=== PATIENT | female | born 1950 | race Caucasian/White ===

== ENCOUNTER 2017-08-27 18:12 | Emergency (ER) | payer MEDICARE ==
[2017-08-27] MEDS ORDERED: SODIUM CHLORIDE 0.9% 500 ML IV STA (19:12)
[2017-08-27] MEDS ORDERED: DICYCLOMINE 10 MG/ML 2 ML AMP IM STA (19:12)
--- NOTE | 2017-08-27 19:16 | ED ---
Abdominal Pain HPI - General Chief Complaint: Abdominal Pain Stated Complaint: ABDOMINAL PAIN Time Seen by Provider: 08/27/17 19:03 Source: patient Mode of arrival: ambulatory Limitations: no limitations - History of Present Illness Initial Comments: 67-year-old female patient presented to the emergency department today for evaluation of generalized abdominal pain. Patient states that she has had the pain for the last 3 hours. States that started that it was constant however has now become intermittent. She states that the pain is real sharp in nature. She states that she also has frequency of urination that started over the last hour. She denies any nausea or vomiting. She denies any constipation. States that she does have issues with diarrhea. She denies any hematochezia or melena. She denies any fevers or chills. Patient does have a history of breast cancer and does receive radiation, last radiation treatment was 2 weeks ago. Patient denies any recent rash, shortness breath, chest pain, back pain, numbness, tingling, dizziness, weakness, hematuria, dysuria, headache, visual changes, or any other complaints. - Related Data Home Medications Medication Instructions Recorded Confirmed Anastrozole [Arimidex] 1 mg PO HS 08/27/17 08/27/17 Allergies Allergy/AdvReac Type Severity Reaction Status Date / Time metronidazole [From Flagyl] Allergy Unknown Verified 08/27/17 19:16 Review of Systems ROS Statement: Those systems with pertinent positive or pertinent negative responses have been documented in the HPI. ROS Other: All systems not noted in ROS Statement are negative. Past Medical History Past Medical History: Cancer Additional Past Medical History / Comment(s): radiation , breast cancer History of Any Multi-Drug Resistant Organisms: None Reported Past Surgical History: Tonsillectomy Additional Past Surgical History / Comment(s): right breast Past Psychological History: No Psychological Hx Reported Smoking Status: Former smoker Past Alcohol Use History: None Reported Past Drug Use History: None Reported General Exam Limitations: no limitations General appearance: alert, in no apparent distress, other (This is a well- developed, well-nourished elderly female patient in no acute distress. Vital signs upon presentation are temperature 98.7F, pulse 73, respirations 20, blood pressure 186/79, pulse ox 100% on room air.) Eye exam: Present: normal appearance, PERRL, EOMI. Absent: scleral icterus, conjunctival injection, periorbital swelling ENT exam: Present: normal exam, normal oropharynx, mucous membranes moist, TM's normal bilaterally Respiratory exam: Present: normal lung sounds bilaterally. Absent: respiratory distress, wheezes, rales, rhonchi, stridor Cardiovascular Exam: Present: regular rate, normal rhythm, normal heart sounds. Absent: systolic murmur, diastolic murmur, rubs, gallop, clicks GI/Abdominal exam: Present: soft, tenderness (Generalized), normal bowel sounds. Absent: distended, guarding, rebound, rigid Neurological exam: Present: alert, oriented X3, CN II-XII intact Psychiatric exam: Present: normal affect, normal mood Skin exam: Present: warm, dry, intact, normal color. Absent: rash Course Vital Signs 08/27/17 08/27/17 08/27/17 18:17 19:20 21:21 Temperature 98.7 F 99.2 F 97.5 F L Pulse Rate 73 70 80 Respiratory 20 18 18 Rate Blood Pressure 186/79 158/72 189/83 O2 Sat by Pulse 100 98 98 Oximetry Medical Decision Making - Medical Decision Making 67-year-old female patient presented to the emergency department today for evaluation of generalized abdominal pain. Physical examination was relatively unremarkable. There was mild generalized abdominal tenderness. Patient is afebrile. Labs reviewed and were unremarkable. Urinalysis is negative for any acute process. KUB x-ray of the abdomen did show excessive pancolonic stool. CT of the abdomen and pelvis was obtained and showed no acute process. I did discuss findings with the patient. I discussed that her symptoms could be related to constipation, but that we could not completely rule out an early process. We will give her magnesium citrate to try. She is instructed to follow up with her doctor soon as possible for further evaluation. She is instructed to return here immediately for symptoms continue, she has any new, worsening, or concerning symptoms. She verbalizes understanding and agrees with this plan. - Lab Data Result diagrams: 08/27/17 19:15 08/27/17 19:15 Lab Results 08/27/17 08/27/17 08/27/17 Range/Units 19:15 19:15 20:20 WBC 7.4 (3.8-10.6) k/uL RBC 4.54 (3.80-5.40) m/uL Hgb 13.4 (11.4-16.0) gm/dL Hct 41.5 (34.0-46.0) % MCV 91.4 (80.0-100.0) fL MCH 29.5 (25.0-35.0) pg MCHC 32.3 (31.0-37.0) g/dL RDW 13.3 (11.5-15.5) % Plt Count 354 (150-450) k/uL Neutrophils % 58 % Lymphocytes % 29 % Monocytes % 7 % Eosinophils % 4 % Basophils % 1 % Neutrophils # 4.3 (1.3-7.7) k/uL Lymphocytes # 2.2 (1.0-4.8) k/uL Monocytes # 0.5 (0-1.0) k/uL Eosinophils # 0.3 (0-0.7) k/uL Basophils # 0.1 (0-0.2) k/uL Sodium 144 (137-145) mmol/L Potassium 4.1 (3.5-5.1) mmol/L Chloride 108 H (98-107) mmol/L Carbon Dioxide 24 (22-30) mmol/L Anion Gap 12 mmol/L BUN 19 H (7-17) mg/dL Creatinine 0.70 (0.52-1.04) mg/dL Est GFR (MDRD) Af Amer >60 (>60 ml/min/1.73 sqM) Est GFR (MDRD) Non-Af >60 (>60 ml/min/1.73 sqM) Glucose 113 H (74-99) mg/dL Calcium 10.0 (8.4-10.2) mg/dL Total Bilirubin 0.3 (0.2-1.3) mg/dL AST 21 (14-36) U/L ALT 24 (9-52) U/L Alkaline Phosphatase 113 (38-126) U/L Total Protein 6.5 (6.3-8.2) g/dL Albumin 4.0 (3.5-5.0) g/dL Amylase 54 (30-110) U/L Lipase 179 (23-300) U/L Urine Color Yellow Urine Appearance Clear (Clear) Urine pH 7.5 (5.0-8.0) Ur Specific [place] 1.013 (1.001-1.035) Urine Protein Negative (Negative) Urine Glucose (UA) Negative (Negative) Urine Ketones Negative (Negative) Urine Blood Negative (Negative) Urine Nitrite Negative (Negative) Urine Bilirubin Negative (Negative) Urine Urobilinogen <2.0 (<2.0) mg/dL Ur Leukocyte Esterase Negative (Negative) - Radiology Data Radiology results: report reviewed, image reviewed CT of the abdomen and pelvis with contrast was obtained, report was reviewed in its entirety, impression by Dr. Yuniel Sumner shows no acute process. Non- aneurysmal atherosclerotic changes throughout the arterial anatomy. KUB x-ray of the abdomen was unchanged findings show excessive swain colonic stool. The bowel gas pattern is otherwise unremarkable. No pneumatosis. No pneumoperitoneum. Soft tissues the skeletal structures are unremarkable. The visualized lung bases and pro spaces and cardiac silhouette are unremarkable. Right axillary surgical clips noted. Impression by Dr. Yuniel Sumner shows excessive pancolonic stool. Disposition Clinical Impression: Abdominal pain Disposition: HOME SELF-CARE Condition: Good Instructions: Abdominal Pain (ED) Additional Instructions: Use medications as discussed. Follow up with her primary care physician as soon as possible for reevaluation. Return here immediate for any new, worsening , or concerning symptoms. Referrals: Bruno Barnett DO [Primary Care Provider] - 1-2 days Time of Disposition: 21:43
[2017-08-27 19:26] VITALS: RESP 18
[2017-08-27 19:34] LABS: Basophils # (A) 0.1 k/uL (0-0.2); Basophils % (A) 1 %; Eosinophils # (A) 0.3 k/uL (0-0.7); Eosinophils % (A) 4 %; HCT 41.5 % (34.0-46.0); HGB 13.4 gm/dL (11.4-16.0); Lymphocytes # (A) 2.2 k/uL (1.0-4.8); Lymphocytes % (A) 29 %; MCH 29.5 pg (25.0-35.0); MCHC 32.3 g/dL (31.0-37.0); MCV 91.4 fL (80.0-100.0); Mean Platelet Volume 6.5; Monocytes # (A) 0.5 k/uL (0-1.0); Monocytes % (A) 7 %; Neutrophils # (A) 4.3 k/uL (1.3-7.7); Neutrophils % (A) 58 %; Platelet Count 354 k/uL (150-450); RBC 4.54 m/uL (3.80-5.40); RDW 13.3 % (11.5-15.5); WBC 7.4 k/uL (3.8-10.6)
[2017-08-27 19:48] LABS: ALT 24 U/L (9-52); AST 21 U/L (14-36); Alkaline Phosphatase 113 U/L (38-126); Amylase 54 U/L (30-110); Anion Gap 12 mmol/L; Blood Urea Nitrogen 19 mg/dL (7-17); Carbon Dioxide 24 mmol/L (22-30); Chloride 108 mmol/L (98-107); Glucose 113 mg/dL (74-99); Lipase 179 U/L (23-300); Potassium 4.1 mmol/L (3.5-5.1); Sodium 144 mmol/L (137-145); Total Bilirubin 0.3 mg/dL (0.2-1.3); Total Protein 6.5 g/dL (6.3-8.2)
--- NOTE | 2017-08-27 19:57 | XR ---
EXAMINATION TYPE: XR KUB-2V DATE OF EXAM: 08/27/2017 COMPARISON: NONE HISTORY: Lower abdominal pain, history right breast carcinoma TECHNIQUE: 2 upright views to include the abdomen and pelvis. FINDINGS: There is excessive pancolonic stool. The bowel gas pattern is otherwise unremarkable. No pn eumatosis. No pneumoperitoneum. The soft tissues and skeletal structures are unremarkable. The visualized lung bases and pleural spaces and cardiac silhouette are unremarkable. Right axillary surgical clips noted. IMPRESSION: Excessive pancolonic stool.
[2017-08-27 20:26] LABS: Appearance,Urine Clear (Clear); Bilirubin,Urine Negative (Negative); Blood,Urine Negative (Negative); Color,Urine Yellow; Glucose,Urine (UA) Negative (Negative); Ketones,Urine Negative (Negative); Leukocyte Esterase,Urine Negative (Negative); Nitrite,Urine Negative (Negative); PH, Urine 7.5 (5.0-8.0); Protein,Urine Negative (Negative); Specific Gravity,Urine 1.013 (1.001-1.035); Urobilinogen,Urine <2.0 mg/dL (<2.0)
[2017-08-27] MEDS ORDERED: RX INFO: IV CONTRAST WAS GIVEN 1 EACH MISC MISCELLANE PRN (20:36)
[2017-08-27 21:22] VITALS: BP 189/83; PULSE 80; TEMP 97.5
--- NOTE | 2017-08-27 21:24 | CT ---
EXAMINATION TYPE: CT abdomen pelvis w con DATE OF EXAM: 08/27/2017 COMPARISON: NONE HISTORY: Abdominal pain today. CT DLP: 961.8 mGycm Automated exposure control for dose reduction was used. TECHNIQUE: Helical acquisition of images was performed from the lung bases through the pelvis. CONTRAST: Performed without Oral Contrast and with IV Contrast, patient injected with 100 mL of Omnip aque 300. FINDINGS: LUNG BASES: No significant abnormality is appreciated. LIVER/GB: No significant abnormality is appreciated. PANCREAS: No significant abnormality is seen. SPLEEN: No significant abnormality is seen. ADRENALS: No significant abnormality is seen. KIDNEYS: No significant abnormality is seen. FREE AIR: No free air is visualized. RETROPERITONEAL ADENOPATHY: None visualized REPRODUCTIVE ORGANS: No significant abnormality is seen URINARY BLADDER: No significant abnormality is seen. PELVIC ADENOPATHY: None visualized. OSSEOUS STRUCTURES: No significant abnormality is seen. BOWEL: No significant abnormality is seen. VASCULATURE: There are advanced nonaneurysmal atherosclerotic changes seen throughout the visualized arterial anatomy of the abdomen and pelvis. The venous structures of the abdomen and pelvis are widel y patent. IMPRESSION: 1. NO ACUTE PROCESS. 2. NONANEURYSMAL ATHEROSCLEROTIC CHANGES THROUGHOUT THE ARTERIAL ANATOMY.
[2017-08-27] MEDS ORDERED: MAGNESIUM CITRATE 296 ML BOTTLE PO ONE (21:42)
== END 2017-08-27 22:04 | disposition home or self-care (01) ==
LOC: EC 18:12
DX: R10.84 Generalized abdominal pain (principal); R35.0 Frequency of micturition; R19.7 Diarrhea, unspecified; Z85.3 Personal history of malignant neoplasm of breast; Z87.891 Personal history of nicotine dependence; Z79.899 Other long term (current) drug therapy; Z88.1 Allergy status to other antibiotic agents
CPT/HCPCS: 36415; 80053; 82150; 83690; 85025; 81003; 74018; 74177; 99284; 96372; J0500; Q9967

== ENCOUNTER → 2018-02-01 | Outpatient (CLI) | payer MEDICARE ==
[2018-02-01 14:01] LABS: T4, Free (Free Thyroxine) 0.89 ng/dL (0.78-2.19)
== END | disposition home or self-care (01) ==
LOC: LABWHC1 12:42
PROVIDERS: ATTEND Psychiatry & Neurology Neurology
DX: R41.3 Other amnesia (principal)
CPT/HCPCS: 36415; 82607; 84439; 84443

== ENCOUNTER → 2018-02-19 | Outpatient (CLI) | payer MEDICARE ==
--- NOTE | 2018-02-19 14:00 | MR ---
EXAMINATION TYPE: MR brain wo/w con DATE OF EXAM: 02/19/2018 COMPARISON: 09/20/2009 HISTORY: Memory loss TECHNIQUE: Multiplanar, multisequence images of the brain and brainstem is performed without and with IV contras t, utilizing 7.5 mL intravenous Gadavist . FINDINGS: Diffusion weighted images demonstrate no evidence of a recent infarct or other diffusion ab normality. There is no extra-axial fluid collection. Few punctate foci of periventricular and subcor tical white matter change are seen as FLAIR/T2 hyperintense foci and are mild in degree. No infratent orial lesions are seen. The ventricular system and cisternal spaces are symmetrically prominent bakari tible with age-related volume loss, mild in degree. Midline structures demonstrate normal morphology. There is slight asymmetric prominence of the left lateral aspect of the pituitary gland in comparison to the right on coronal postcontrast image 14 and sagittal image 70. No enlargement of the pituitary gland is seen above the sella turcica. No impress ion on the optic chiasm. There is a nonenhancing incidentally noted 7 mm pineal gland cyst abutting b ut not significantly pressing upon the superior tectal plate. The craniocervical junction appears within normal limits. Post contrast images demonstrate no abnorm al enhancement. The dural venous sinuses appear patent. The globes are intact. There is partial opaci fication of the right and left mastoid air cells. Scant mucosal thickening is seen within the frontal and ethmoid sinuses. Remaining visualized paranasal sinuses are well aerated. IMPRESSION: 1. No evidence of acute infarct or abnormal intracranial enhancement. 2. Mild paranasal sinus disease and partial opacification of the bilateral mastoid air cells that jw uld be correlated clinically with point tenderness to exclude mastoiditis. 3. Slight asymmetric prominence of the left lateral aspect of the pituitary gland. If laboratory valu es or abnormal and microadenoma suspected dedicated pituitary MRI could be performed. No impression o n the optic chiasm. 4. Mild nonspecific white matter change, likely on the basis of chronic microangiopathy. Global mild age-related volume loss.
== END | disposition home or self-care (01) ==
LOC: RADMRIMAIN 11:14
PROVIDERS: ATTEND Psychiatry & Neurology Neurology
DX: E23.6 Other disorders of pituitary gland (principal); R90.82 White matter disease, unspecified; Z13.89 Encounter for screening for other disorder
CPT/HCPCS: 82565; 70553; 36415; A9581

== ENCOUNTER → 2018-03-15 | Outpatient (CLI) | payer MEDICARE ==
--- NOTE | 2018-03-16 07:33 | MM ---
Reason for exam: additional evaluation requested from prior study. Last mammogram was performed 1 year ago. History: Patient is postmenopausal and has history of breast cancer at age 66. Lumpectomy of the right breast, 2017. Radiation therapy of the right breast, 2017. Benign cyst aspiration of the left breast. Took estrogen for 23 years 4 months. Physical Findings: Nurse did not find any significant physical abnormalities on exam. MG 3D Diag Mammo W/Cad CONRAD Bilateral CC and MLO view(s) were taken. Prior study comparison: March 04, 2017, mammogram, performed at [facility]. April 25, 2009, bilateral digital screening mammogram. November 18, 2007, bilateral digital screening mammogram. The breast tissue is heterogeneously dense. This may lower the sensitivity of mammography. Stable benign calcifications. Stable post operative distortion right breast. No significant new findings when compared with previous films. These results were verbally communicated with the patient and result sheet given to the patient on 03/15/18. ASSESSMENT: Benign, BI-RAD 2 RECOMMENDATION: Follow-up diagnostic mammogram of both breasts in 1 year.
== END | disposition home or self-care (01) ==
LOC: RADMAMWWP 09:49
PROVIDERS: ATTEND Radiology Radiation Oncology
DX: Z08 Encounter for follow-up examination after completed treatment for malignant neoplasm (principal); Z85.3 Personal history of malignant neoplasm of breast
CPT/HCPCS: 77066; G0279; 77062

== ENCOUNTER → 2018-03-19 | Outpatient (CLI) | payer MEDICARE ==
--- NOTE | 2018-03-19 19:33 | MR ---
EXAMINATION TYPE: MR pituitary wo/w con DATE OF EXAM: 03/19/2018 COMPARISON: MRI brain 02/19/2018 HISTORY: Abn MRI /Pituitary microadenoma TECHNIQUE: Multiplanar, multisequence images of the pituitary is performed without and with IV contrast, utilizi ng 7.5 mL intravenous Gadavist . FINDINGS: Pituitary stalk is in the midline. Optic chiasm is normal. There is fullness through the posterior portion of the pituitary. This is somewhat hyperintense witho ut enhancement. This is hyperintense on T1-weighted sequences and more intermediate signal on postcon trast T1-weighted images. This is intermediate signal on T2-weighted sequences. The pituitary as a whole has a normal size. The slight prominence of the superior left portion of the pituitary is again evident. This portion of the pituitary is subtly more hypointense than the right aspect. Postcontrast T1-weighted images in the sagittal plane have a 0.5 cm hypointense area. This is identified in the sagittal plane but not as clearly evident in the coronal planes this is slightly m ore hypointense on the T2-weighted sequences. Microadenoma at this location may be present. Normal vascular flow voids are present within the visualized intracranial cerebral vasculature. Pitui tary stalk is midline and the optic chiasm is normal. No compression or displacement of the optic chi asm is evident. There may be some mild age-related atrophy of the brain within the visualized portion s. No suspicious enhancement within the brain is evident. IMPRESSION: 1. There is some subtle fullness as well as some subtle hypointensity on T1-weighted sequences within the left aspect of the pituitary suggesting underlying 0.5 cm microadenoma may be present. Clinical correlation is recommended. 2. Some additional fullness slightly greater than expected is within the posterior portion of the pit uitary of uncertain clinical significance.
== END ==
LOC: RADMRIMAIN 11:13
PROVIDERS: ATTEND Psychiatry & Neurology Neurology
DX: R90.89 Other abnormal findings on diagnostic imaging of central nervous system (principal)
CPT/HCPCS: 70553; A9581

== ENCOUNTER → 2018-07-16 | Outpatient (CLI) | payer MEDICARE ==
[2018-07-19 12:28] LABS: ACTH 12.5 pg/mL (0.00-45.99)
== END | disposition home or self-care (01) ==
LOC: LABWHC1 11:53
PROVIDERS: ATTEND Internal Medicine Endocrinology, Diabetes & Metabolism
DX: D35.2 Benign neoplasm of pituitary gland (principal)
CPT/HCPCS: 36415; 82024; 82533; 82607; 83001; 83002; 84146; 84305; 84439; 84443

== ENCOUNTER → 2019-05-05 | Outpatient (CLI) | payer MEDICARE ==
--- NOTE | 2019-05-06 08:35 | MM ---
Reason for exam: additional evaluation requested from prior study. Last mammogram was performed 1 year and 2 months ago. History: Patient is postmenopausal and has history of breast cancer at age 66. Lumpectomy of the right breast, 2017. Radiation therapy of the right breast, 2017. Benign cyst aspiration of the left breast. Took estrogen for 23 years 4 months. Physical Findings: Nurse did not find any significant physical abnormalities on exam. MG 3D Diag Mammo W/Cad CONRAD Bilateral CC and MLO view(s) were taken. XCCL view(s) were taken of the right breast. Prior study comparison: March 15, 2018, bilateral MG 3d diag mammo w/cad CONRAD. March 04, 2017, mammogram, performed at [facility]. The breast tissue is heterogeneously dense. This may lower the sensitivity of mammography. Post surgical and post therapy changes right breast. Nodular densities and medial asymmetric density on the left as well as centrally on the CC view are unchanged. These results were verbally communicated with the patient and result sheet given to the patient on 05/05/19. ASSESSMENT: Probably benign, BI-RAD 3 RECOMMENDATION: Follow-up diagnostic mammogram of both breasts in 1 year.
== END | disposition home or self-care (01) ==
LOC: RADMAMWWP 06:56
PROVIDERS: ATTEND Internal Medicine Hematology & Oncology
DX: C50.511 Malignant neoplasm of lower-outer quadrant of right female breast (principal)
CPT/HCPCS: 77066; G0279; 77062

== ENCOUNTER → 2019-08-04 | Outpatient (CLI) | payer MEDICARE ==
--- NOTE | 2019-08-04 15:30 | CT ---
EXAMINATION TYPE: CT abdomen w con DATE OF EXAM: 08/04/2019 HISTORY: Stomach pains CT DLP: 935mGycm Automated Exposure Control for Dose Reduction was Utilized. CONTRAST: CT scan of the abdomen is performed with oral and with IV Contrast, patient injected with 100 mL of I sovue 300. COMPARISON: CT abdomen and pelvis August 27, 2017 FINDINGS: LUNG BASES: Motion artifact and rotation with lateral left basilar linear scarring and/or atelectasis . LIVER/GB: Dependent 1.3 cm rim hyperdense lesion gallbladder suspected gallstone. No surrounding infl ammatory change. PANCREAS: No significant abnormality is seen. SPLEEN: No significant abnormality is seen. ADRENALS: No significant abnormality is seen. KIDNEYS: Symmetric cortical medullary uptake and excretion of both kidneys without hydronephrosis see n bilaterally. BOWEL: Oral contrast is present in right sided ileal loops making evaluation slightly suboptimal.. No suspicious small large bowel dilatation noted. LYMPH NODES: No greater than 1cm abdominal or pelvic lymph nodes are appreciated. OSSEOUS STRUCTURES: [id number] multilevel disc space narrowing in the lumbar spine with vacuum disc phenomenon L5-S1 level. Mild multilevel anterior and lateral spurring. OTHER: Moderate to advanced calcified plaque distal abdominal aorta extends into the iliac branch ves sels. IMPRESSION: No bowel obstruction. No suspicious new or acute findings are evident.
== END | disposition home or self-care (01) ==
LOC: RADCTMAIN 12:58
PROVIDERS: ATTEND Family Medicine
DX: Z01.818 Encounter for other preprocedural examination (principal); R10.84 Generalized abdominal pain
CPT/HCPCS: 82565; 84520; 74160; 36415; Q9967

== ENCOUNTER → 2020-08-07 | Outpatient (CLI) | payer MEDICARE ==
--- NOTE | 2020-08-07 08:46 | MM ---
Reason for exam: additional evaluation requested from prior study. Last mammogram was performed 1 year and 3 months ago. History: Patient is postmenopausal and has history of breast cancer at age 66. Lumpectomy of the right breast, 2017. Radiation therapy of the right breast, 2017. Benign cyst aspiration of the left breast. Took estrogen for 23 years 4 months. Physical Findings: Nurse did not find any significant physical abnormalities on exam. MG 3D Diag Mammo W/Cad CONRAD Bilateral CC and MLO view(s) were taken. Prior study comparison: May 05, 2019, bilateral MG 3d diag mammo w/cad CONRAD. March 15, 2018, bilateral MG 3d diag mammo w/cad CONRAD. The breast tissue is heterogeneously dense. This may lower the sensitivity of mammography. Stable benign calcifications. Stable post operative distortion right breast. No significant new findings when compared with previous films. These results were verbally communicated with the patient and result sheet given to the patient on 08/07/20. ASSESSMENT: Benign, BI-RAD 2 RECOMMENDATION: Follow-up diagnostic mammogram of both breasts in 1 year.
== END | disposition home or self-care (01) ==
LOC: RADMAMWWP 07:49
PROVIDERS: ATTEND Family Medicine
DX: C50.919 Malignant neoplasm of unspecified site of unspecified female breast (principal)
CPT/HCPCS: 77066; G0279; 77062

== ENCOUNTER → 2020-09-20 | Outpatient (CLI) | payer MEDICARE ==
[2020-09-20 17:55] LABS: Prolactin 3.3 ng/mL (2.8-29.2)
== END | disposition home or self-care (01) ==
LOC: LABWHC1 10:34
PROVIDERS: ATTEND Internal Medicine Endocrinology, Diabetes & Metabolism
DX: D35.2 Benign neoplasm of pituitary gland (principal)
CPT/HCPCS: 36415; 82024; 82533; 84146; 84305; 84439; 84443; 84480

== ENCOUNTER → 2020-10-16 | Outpatient (CLI) | payer MEDICARE | END | disposition home or self-care (01) | LOC: LABPAT 08:58 | PROVIDERS: ATTEND Surgery | DX: Z20.822 Contact with and (suspected) exposure to COVID-19 (principal) | CPT/HCPCS: U0003; C9803; U0005 ==

== ENCOUNTER 2020-10-19 07:18 | Day surgery (SDC) | payer MEDICARE ==
[2020-10-18 13:54] VITALS: BMI 28.3
[~2020-10-19 07:18] MED LIST: LIDOCAINE 1% (10MG/ML) FOR IV START INTRADERMA PRN
[2020-10-19 07:44] VITALS: TEMP 97.4
[2020-10-19] MEDS: LACTATED RINGERS 1,000 ML IV SCH ×2 (07:59→08:05)
[2020-10-19 08:01] LABS: Glucose,Whole Blood 114 mg/dL (75-99)
[2020-10-19] MEDS ORDERED: PROPOFOL 10 MG/ML 20 ML VIAL IV ONE (08:06)
[2020-10-19] MEDS ORDERED: LIDOCAINE 1% INJ 10MG/ML (20 ML MDV) ONE (08:06)
--- NOTE | 2020-10-19 08:42 | P.PCN ---
Date of Procedure: 10/19/20 Preoperative Diagnosis: Epigastric pain, diarrhea Postoperative Diagnosis: Epigastric pain, diarrhea, hiatal hernia, mild gastritis, mild duodenitis, normal colon Procedure(s) Performed: EGD with biopsy, colonoscopy with biopsy Anesthesia: MAC Surgeon: Haydee Sanchez Pathology: other Condition: stable Disposition: PACU Indications for Procedure: Patient presents with abdominal pain and diarrhea. Description of Procedure: Patient's taken to the endoscopy suite were gastroscope was passed per mouth to the third and fourth portions of the duodenum. Pharynx is unremarkable. The esophagus is without evidence of esophagitis or mass lesion. GE junction is without inflammatory change. These is a small sliding hiatal hernia. There is some chronic appearing gastritis in the antrum and cold biopsies were obtained there is some erythema in the duodenal bulb and cold biopsies were obtained. Otherwise the stomach, pylorus and duodenum were without evidence of ulcer, mass lesion or other mucosal abnormality. She is then repositioned in a colonoscope is passed per rectum to the cecum. She had a good prep. There was no evidence of polyp, mass lesion, ulcer, stricture, diverticuli or other mucosal abnormality. No significant hemorrhoidal disease was seen on retroflexion of the scope. Some random colonic biopsies were obtained to rule out microscopic colitis. She tolerated the procedure without difficulty and is taken to recovery room in satisfactory condition. We'll call with the report on biopsies. And discussed with laparoscopic cholecystectomy Plan - Discharge Summary Discharge Rx Participant: No New Discharge Prescriptions: No Action metFORMIN HCL [Glucophage] 500 mg PO BID Memantine [Namenda] 10 mg PO BID lisinopriL [Zestril] 40 mg PO DAILY Donepezil [Aricept] 10 mg PO HS DULoxetine HCL [Cymbalta] 60 mg PO DAILY Discharge Medication List DULoxetine HCL [Cymbalta] 60 mg PO DAILY 10/18/20 [History] Donepezil [Aricept] 10 mg PO HS 10/18/20 [History] Memantine [Namenda] 10 mg PO BID 10/18/20 [History] lisinopriL [Zestril] 40 mg PO DAILY 10/18/20 [History] metFORMIN HCL [Glucophage] 500 mg PO BID 10/18/20 [History] Discharge Disposition: HOME SELF-CARE
[2020-10-19] MEDS ORDERED: hydrALAZINE HCL 20 MG/ML 1 ML VIAL IVP STA (08:57)
[2020-10-19 09:19] VITALS: RESP 18
[2020-10-19 09:44] VITALS: BP 162/80; PULSE 64
== END 2020-10-19 09:51 | disposition home or self-care (01) ==
LOC: ORWHC2ENDO 07:18
PROVIDERS: ATTEND Surgery
DX: K29.80 Duodenitis without bleeding (principal); K29.70 Gastritis, unspecified, without bleeding; K44.9 Diaphragmatic hernia without obstruction or gangrene; R10.13 Epigastric pain; R19.7 Diarrhea, unspecified; I10 Essential (primary) hypertension; E78.00 Pure hypercholesterolemia, unspecified; G30.9 Alzheimer's disease, unspecified; F02.80 Dementia in other diseases classified elsewhere, unspecified severity, without behavioral disturbance, psychotic disturbance, mood disturbance, and anxiety; Z79.84 Long term (current) use of oral hypoglycemic drugs; Z79.899 Other long term (current) drug therapy; Z83.3 Family history of diabetes mellitus; Z85.3 Personal history of malignant neoplasm of breast
CPT/HCPCS: 88305; 45380; 43239; J0360; J2001; J2704